=== PATIENT | male | born 1990 | race African-American/Black ===

== ENCOUNTER 2024-11-07 23:39 | Emergency (ER) | payer MEDICAID, OTHER ==
[~2024-11-07] VITALS: Ht 193 cm; Wt 140.0 kg
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
[2024-11-08] MEDS: HYDROcodone-ACET 5/325MG TAB PO ONE (02:35)
[2024-11-08] MEDS: KETOROLAC TROMETH 60MG/2ML VIAL IM ONE (02:41)
[2024-11-08 03:50] VITALS: BP 132/78; PULSE 74; RESP 18; TEMP 98; O2SAT 97
[2024-11-08] MEDS ORDERED: TIZA-142 PO (04:48)
[2024-11-08] MEDS ORDERED: METH4PAK PO (04:48)
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
== END 2024-11-08 04:55 | disposition home or self-care (01) ==
LOC: ER 23:39
DX: S13.4XXA Sprain of ligaments of cervical spine, initial encounter (principal); S46.912A Strain of unspecified muscle, fascia and tendon at shoulder and upper arm level, left arm, initial encounter; S50.12XA Contusion of left forearm, initial encounter; V89.2XXA Person injured in unspecified motor-vehicle accident, traffic, initial encounter; Y93.89 Activity, other specified; Y92.410 Unspecified street and highway as the place of occurrence of the external cause; Y99.8 Other external cause status
CPT/HCPCS: 72040; 73030; 73080; 96372; 99284; J1885